=== PATIENT | female | born 1985 | race Native Hawaiian/Other Pacific Islander ===

== ENCOUNTER 2020-04-23 02:57 | Emergency (ER) | payer OTHER ==
[~2020-04-23] VITALS: Ht 162.6 cm; Wt 72.6 kg
[2020-04-23 03:28] LABS: PLATELET COUNT 347 K/uL (152-353)
[2020-04-23 03:33] LABS: POTASSIUM 2.6 mmol/L (3.6-5.2)
[2020-04-23 03:40] LABS: PARTIAL THROMBOPLASTIN TIME 22.5 SECONDS (24.5-33.6)
[2020-04-23 05:45] VITALS: BP 103/76; TEMP 98.2
== END 2020-04-23 05:45 | disposition short-term general hospital (02) ==
LOC: ED 02:57
PROVIDERS: Family Medicine
PROC: 0T9B70Z Drainage of Bladder with Drainage Device, Via Natural or Artificial Opening (ICD-10-PCS; principal; 2020-04-23)
DX: S27.322A Contusion of lung, bilateral, initial encounter (principal); S22.20XA Unspecified fracture of sternum, initial encounter for closed fracture; S22.42XA Multiple fractures of ribs, left side, initial encounter for closed fracture; S42.115A Nondisplaced fracture of body of scapula, left shoulder, initial encounter for closed fracture; S00.81XA Abrasion of other part of head, initial encounter; V86.55XA Driver of 3- or 4- wheeled all-terrain vehicle (ATV) injured in nontraffic accident, initial encounter; Y92.89 Other specified places as the place of occurrence of the external cause
CPT/HCPCS: 36415; 51702; 80053; 80307; 80320; 81000; 81025; 85027; 85610; 85730; 96360; 96361; 96375; 99285; J1885; J2405